=== PATIENT | male | born 1955 | race Two or more races ===

== ENCOUNTER → 2017-05-17 | Emergency (ER) | payer SELFPAY ==
[~2017-05-17] VITALS: Ht 172.7 cm; Wt 65.8 kg
--- NOTE | 2017-05-17 21:27 | NUR ---
Pt called, no answer.
--- NOTE | 2017-05-17 21:30 | NUR ---
Pt called, no answer
--- NOTE | 2017-05-17 22:10 | NUR ---
Attempted to locate pt a third time, no answer
== END | disposition home or self-care (01) ==
LOC: ER 15:25
DX: Z53.21 Procedure and treatment not carried out due to patient leaving prior to being seen by health care provider (principal)
CPT/HCPCS: A4663